=== PATIENT | female | born 1990 | race Asian ===

== ENCOUNTER 2018-04-28 08:39 | Emergency (ER) | payer MEDICAID ==
[~2018-04-28] VITALS: Ht 160 cm; Wt 84.9 kg
[2018-04-28] MEDS ORDERED: ALBUTEROL/IPRATROPIUM 2.5MG/0.5MG, 3 ML ONE (08:57)
[2018-04-28] MEDS ORDERED: BUDE10.22 INH (09:02)
[2018-04-28] MEDS ORDERED: ALBU18HF INH (09:02)
[2018-04-28] MEDS ORDERED: ALBU8.5H8 INH (09:02)
[2018-04-28] MEDS ORDERED: ALBUTEROL SULFATE 2.5 MG/3 ML ONE (09:46)
[2018-04-28 09:50] VITALS: BP 138/90
== END 2018-04-28 10:39 | disposition home or self-care (01) ==
LOC: ED 09:06
DX: J45.41 Moderate persistent asthma with (acute) exacerbation (principal)
CPT/HCPCS: 71046; 94640; 99284; J7512

== ENCOUNTER 2019-10-16 03:42 | Emergency (ER) | payer MEDICAID ==
[~2019-10-16] VITALS: Ht 157.5 cm; Wt 76.9 kg
[~2019-10-16 03:42] MED LIST: ALBU18HF INH; ALBU8.5H8 INH; BUDE10.22 INH
--- NOTE | 2019-10-16 03:53 | NUR ---
Patient presents to ER c/o SOB x2 weeks. She has a hx of asthma and was seen for the same on September 29. They gave her albuterol inhaler rx but it hasn't helped. Patient states she cannot get into a primary until middle of October. Nothing has made the SOB better; patient does not have nebulized tx at home. Patient is speaking in [id number] word sentences and is obviously SOB. Respirations even.
[2019-10-16] MEDS ORDERED: ALBUTEROL/IPRATROPIUM 2.5MG/0.5MG, 3 ML ONE (04:04)
[2019-10-16] MEDS: ALBUTEROL/IPRATROPIUM 2.5MG/0.5MG, 3 ML NPPB SCH (04:11)
--- NOTE | 2019-10-16 04:31 | NUR ---
Breathing tx completed; patient states, "I feel like a weight has been lifted off my chest."
[2019-10-16 05:03] VITALS: BP 145/79
--- NOTE | 2019-10-16 05:03 | NUR ---
Patient resting in [facility] with no complaints.
--- NOTE | 2019-10-16 05:12 | NUR ---
Discharge instructions given. All questions and concerns addressed. Patient ambulatory with a steady gait. Belongings with patient.
== END 2019-10-16 05:14 | disposition home or self-care (01) ==
LOC: ED 03:55
DX: J45.41 Moderate persistent asthma with (acute) exacerbation (principal)
CPT/HCPCS: 71045; 93005; 94640; 99283; J7512